=== PATIENT | female | born 1940 ===

== ENCOUNTER 2018-09-01 12:50 | Inpatient (IN) | payer MEDICARE ==
[2018-09-01] VITALS (11 sets, daily range): BP systolic 78–193; BP diastolic 40–59; BMI 30.8
[~2018-09-01] VITALS: Ht 160 cm; Wt 84.6 kg
[2018-09-01] MEDS ORDERED: XANAX0.5 MG (13:06)
[2018-09-01] MEDS ORDERED: NORVASC10 MG (13:06)
[2018-09-01] MEDS ORDERED: BUSPAR10 MG (13:07)
[2018-09-01] MEDS ORDERED: FOLIC ACID1 MG (13:07)
[2018-09-01] MEDS ORDERED: ZITHROMAX250 MG (13:07)
[2018-09-01] MEDS ORDERED: CATAPRES0.1 MG (13:07)
[2018-09-01] MEDS ORDERED: METHOTREXATE2.5 MG (13:08)
[2018-09-01] MEDS ORDERED: TRAZOD (13:08)
[2018-09-01] MEDS ORDERED: CRESTOR20 MG (13:08)
[2018-09-01] MEDS ORDERED: RELAFEN750 MG (13:08)
[2018-09-01] MEDS ORDERED: ROCEPHIN 1 GM/D51 G1 (13:08)
[2018-09-01] MEDS ORDERED: DEPAKENE250 MG (13:09)
[2018-09-01] MEDS ORDERED: GEODON60 MG (13:09)
--- NOTE | 2018-09-01 13:45 | NUR ---
TO CT SCAN.
--- NOTE | 2018-09-01 14:15 | NUR ---
RETURNED FROM CT SCAN.
--- NOTE | 2018-09-01 14:20 | NUR ---
PROPOFOL INCREASED TO 20 MCG. PATIENT IS BITING ON THE TUBE.
--- NOTE | 2018-09-01 14:56 | NUR ---
PROPOFOL DECREASED TO 10 MCG DUE TO BP DROP.
[2018-09-01 15:06] LABS: BASOPHILS 0 % (0-2); EOSINOPHILS 0 % (0-7); HEMATOCRIT 28.1 % (36.0-48.0); HEMOGLOBIN 8.9 g/dL (12-16); LYMPHOCYTES 1.8 % (15-50); MCH 29.9 pg (26.0-34.0); MCHC 31.7 g/dL (31.0-37.0); MCV 94.3 fL (80.0-100.0); MEAN PLATELET VOLUME 8.8 fL (7.4-10.4); MONOCYTES 2.8 % (2-11); NEUTROPHILS 94.4 % (40-80); PLATELET COUNT 295 10x3/uL (130-400); RBC 2.98 10x6/uL (4.00-5.40); RDW 17.4 % (11.5-14.5); WBC 3.9 10x3/uL (4.8-10.8)
[2018-09-01 15:21] LABS: ALBUMIN 2.2 g/dL (3.4-5.0); ALKALINE PHOSPHATASE 73 U/L (46-116); ALT (SGPT) 22 U/L (10-68); BILIRUBIN - TOTAL 0.56 mg/dL (0.2-1.3); CALC OSMOLALITY 296 mosm/kg (275-300); CALCIUM 10.3 mg/dL (8.5-10.1); CARBON DIOXIDE 27.2 mmol/L (21.0-32.0); CHLORIDE - SERUM 104 mmol/L (98-107); CREATININE - SERUM 0.7 mg/dL (0.6-1.3); GLUCOSE 172 mg/dL (74-106); POTASSIUM - SERUM 4.6 mmol/L (3.5-5.1); PROTEIN - SERUM 7.1 g/dL (6.4-8.2); SODIUM 143 mmol/L (136-145); UREA NITROGEN 34 mg/dL (7-18); eGFR NON AFRICAN AMERICAN 85 mL/min (90-120)
--- NOTE | 2018-09-01 15:27 | NUR ---
PROPOFOL INCREASED TO 20 MCG. PATIENT STARTED MOVING AND CHEWING ON HER TUBE. PATIENT IS NOW RESTING COMFORTABLY. FAMILY AT BEDSIDE. UPDATED ON PLAN OF CARE AND DELAYS IN CARE.
[2018-09-01 15:34] LABS: CKMB 3.4 U/L (0.0-3.6); CREATINE KINASE 22 UL (21-215)
[2018-09-01 15:48] LABS: TROPONIN-I 0.232 ng/mL (0.000-0.060)
--- NOTE | 2018-09-01 16:23 | NUR ---
NOREPINEPRINE INCREASED TO 2 MCG/MIN FOR BP OF 78/51 HR 71
--- NOTE | 2018-09-01 17:45 | NUR ---
REC'D FROM ER VIA CART. TO ICU BED BY T[employer]. OPENS EYES AND FOLLOWS SIMPLE COMMANDS. CONNECTED TO MONITOR AND VS OBTAINED. #7 OETT PATENT AND CONNECTED TO VENT. TV 450 FIO2 45 AC 16 PEEP +5. DIPRIVAN INFUSING TO L LEG IO. ROSS PATENT AND DRAINING CLEAR RABIA URINE. MULTIPLE STAGE 2 PRESSURE ON BUTTOCKS AND COOCYX. SEE ADMISSION ASSESSMENT.
--- NOTE | 2018-09-01 19:00 | NUR ---
Dr Lu notified of consult per daytime RN, Dr Desai paged to notify of consult.
--- NOTE | 2018-09-01 19:25 | NUR ---
Received patient sedated in bed on vent with family at bedside, assessment completed per flowsheet. Patient opens eyes to voice/weakly follows commands, eyes PERRLA @ 4mm with brisk response. ETT 7.0 @ 21cm secured. S1/S2 noted NSR on telemetry with HR 88, rythmic and regular. Vent settings A/C R-16 V-450 45% P-5 with O2 sat 93%, coarse crackles noted throughout. Abdomen is obese/soft with bowel sounds active x4, non-tender. Villanueva secured, concentrated yellow urine noted. LUE with chronic elbow dislocation, family refuses to allow reduction. All pulses palpable with cap refill < 3 sec, skin warm/dry. Large sacral decubitus ulcer noted, small purulent yellow drainage. Bilateral heel pressure ulcers, small pink-tinged drainage noted. Repositioned for comfort, heels bridged. No further needs at this time, see flowsheet for details. All VSS and will continue to monitor.
--- NOTE | 2018-09-01 19:35 | NUR ---
Dr Breen at bedside assessing patient, new orders received. Family updated on patient status, all questions answered by physician.
--- NOTE | 2018-09-01 20:10 | NUR ---
Anesthesiology Technologist notified of new orders, antibiotics to be pulled and given when available.
[2018-09-01 20:42] LABS: CKMB 2.1 U/L (0.0-3.6); CREATINE KINASE 20 UL (21-215); TROPONIN-I 0.194 ng/mL (0.000-0.060)
[2018-09-01 20:50] LABS: % SATURATION 6 % (15-55); FERRITIN 944 ng/mL (3-244); IRON 13 ug/dl (35-150); PRO BNP 2450 pg/mL (0-450); TOTAL IRON BIND CAPACITY 197 ug/dl (260-445); UNSAT IRON BIND CAPACITY 184 ug/dl (150-375)
--- NOTE | 2018-09-01 22:08 | NUR ---
nurses supervisor notified of medications to be pulled, to be given when available.
--- NOTE | 2018-09-01 23:15 | NUR ---
Reassessment completed per flowsheet, no s/s of distress at this time. ETT 7.0 @ 21cm secured, OGT secured. S1/S2 noted NSR on telemetry, rythmic and regular. Vent settings unchanged, crackles noted throughout. LUE chronic dislocation, all pulses palpable with cap refill < 3 sec. BLE skin dry/cracking, pressure ulcers noted bilateral heep with pink-tinged drainage. Buttock/Coccyx pressure ulcer with purulent yellow drainage, moderate exudate cleaned. Repositioned for comfort, no further needs. See flowsheet for details, all VSS and will continue to monitor.
[2018-09-02] VITALS (33 sets, daily range): BP systolic 85–187; BP diastolic 39–82; BMI 30.2
--- NOTE | 2018-09-02 01:10 | NUR ---
Patient sedated in bed with eyes closed, patient opens eyes to voice and weakly moves extremities. Oral care/repositioning for comfort, no further needs at this time and will continue to monitor.
--- NOTE | 2018-09-02 03:06 | NUR ---
Reassessment completed per flowsheet, no changes from previous assessment. Patient sedated in bed with eyes closed, opens eyes to voice/moves extremities weakly. S1/S2 noted NSR on telemetry, rythmic and regular. Vent settings unchanged from previous with O2 sat 98%, crackles noted throughout. All pulses palpable wtih cap refill < 3 sec, skin warm/dry. Oral care/suctioning provided, repositioned for comfort. No further needs at this time, see flowsheet for details. All VSS and will continue to monitor.
[2018-09-02 03:13] LABS: CKMB 0.9 U/L (0.0-3.6); CREATINE KINASE 13 UL (21-215); TROPONIN-I 0.141 ng/mL (0.000-0.060)
--- NOTE | 2018-09-02 05:00 | NUR ---
Patient sedated in bed on vent with eyes closed, no s/s of distress at this time. Patient opens eyes spontaneously, weakly follows commands with RUE. Oral care/suctioning provided, repositioned for comfort. No further needs and will continue to monitor.
[2018-09-02 05:55] LABS: BASOPHILS 0 % (0-2); EOSINOPHILS 0 % (0-7); HEMATOCRIT 22.8 % (36.0-48.0); IMMATURE GRANULOCYTES 0.6 % (0-5); MCHC 32.5 g/dL (31.0-37.0); MEAN PLATELET VOLUME 8.8 fL (7.4-10.4); MONOCYTES 4.6 % (2-11); NEUTROPHILS 89.8 % (40-80); PLATELET COUNT 268 10x3/uL (130-400); RBC 2.47 10x6/uL (4.00-5.40); RDW 17.7 % (11.5-14.5)
[2018-09-02 06:01] LABS: HEMOGLOBIN 7.4 g/dL (12-16); MCV 92.3 fL (80.0-100.0)
[2018-09-02 06:06] LABS: CALCIUM 9.5 mg/dL (8.5-10.1); CARBON DIOXIDE 22.5 mmol/L (21.0-32.0); CHLORIDE - SERUM 111 mmol/L (98-107); CREATININE - SERUM 0.7 mg/dL (0.6-1.3); SODIUM 147 mmol/L (136-145); UREA NITROGEN 40 mg/dL (7-18); eGFR NON AFRICAN AMERICAN 85 mL/min (90-120)
[2018-09-02 06:07] LABS: CALC OSMOLALITY 302 mosm/kg (275-300); GLUCOSE 121 mg/dL (74-106); POTASSIUM - SERUM 3.6 mmol/L (3.5-5.1)
--- NOTE | 2018-09-02 06:15 | NUR ---
Paged Dr Breen regarding H&H results, awaiting return call.
--- NOTE | 2018-09-02 07:20 | NUR ---
SHIFT REPORT RECEIVED. PT INTUBATED AND SEDATED. OPENS EYES TO VOICE. HAS IO ON LEFT NUNES. PROPOFOL INFUSING AT 22MCG/KG/MIN AND NS AT 100ML/HR. 7.0 ETT 22 AT THE LIP RIGHT SIDE. WRIST RESTRAINTS IN PLACE. ROSS IN PLACE WITH CONCENTRATE YELLOW URINE NOTED. A/C, TV 500, R-12, FIO2 45%, PEEP 5. OGT TUBE IN PLACE TO LIWS. SHIFT ASSESSMENT COMPLETED. WILL CONTINUE TO MONITOR.
--- NOTE | 2018-09-02 07:48 | NUR ---
PROPOFOL INCREASED TO 25MCG/KG/MIN AT THIS TIME.
[2018-09-02 07:49] LABS: CKMB 0.8 U/L (0.0-3.6); CREATINE KINASE 22 UL (21-215); TROPONIN-I 0.136 ng/mL (0.000-0.060)
[2018-09-02 08:48] LABS: INR 1.14 (0.85-1.17); PROTIME 14.1 SECONDS (11.6-15.0)
--- NOTE | 2018-09-02 09:40 | NUR ---
SPOKE WITH DAUGHTER CAIO IRVIN VIA PHONE. SPOKE WITH HER REGARDING CVL PLACEMENT. SHE IS POA AND GAVE CONSENT TO HAVE CVL PLACED. SHE WILL BE BY TO SEE PT LATER TODAY.
--- NOTE | 2018-09-02 11:25 | NUR ---
GI OFFICE NOTIFIED OF CONSULT. DR. FLORES IS UNIT TECHNICIAN TODAY.
--- NOTE | 2018-09-02 11:39 | NUR ---
SPOKE WITH CAIO IRVIN ON THE PHONE. CONSENT ACQUIRED FOR CVL PLACEMENT, THORACENTESIS, AND BLOOD TRANSFUSSION. CONSENT VIRIFIED BY ALBARO ESPINOZA AND YIN ESPINOZA.
--- NOTE | 2018-09-02 12:03 | NUR ---
SPOKE WITH DR. COLBERT. HE WANTS TO WAIT ON BLOOD TRANSFUSSION TILL AFTER LABS HAVE BEEN COLLECTED. PT ONLY HAS IO. WAITING ON CVL PLACEMENT. DR. PARISI HAS BEEN NOTIFIED. WILL CONTINUE TO MONITOR.
--- NOTE | 2018-09-02 14:10 | NUR ---
CVL PLACED AT THIS TIME BY DR. PARISI. PROPOFOL INCREASED TO 40MCG/KG/MIN FOR PROCEDURE.
--- NOTE | 2018-09-02 15:21 | NUR ---
PT SLIGHTLY BRADYCARDIC. HR DROPS TO 59 BUT RETURNS BACK TO 60S. PROPOFOL DECREASED FROM 40MCG/KG/MIN TO 35MCG/KG/MIN. IO DC'D AT THIS TIME. FLUIDS INFUSING THROUGH L-SUB CVL THAT WAS PLACED TO DAY. PLACEMENT WAS VERIFIED WITH CX-RAY
--- NOTE | 2018-09-02 16:10 | NUR ---
PT TRANSPORTED TO AND FROM CT. NO COMPLICATIONS NOTED. CURRENTLY BACK IN ROOM. PROPOFOL AT 35MCG/KG/MIN AND NS AT 100ML/HR. WILL CONTINUE TO MONITOR.
--- NOTE | 2018-09-02 17:22 | NUR ---
CARDIOLOGY CONSULT CALLED IN AT THIS TIME. OFFICE WILL NOTIFY DR. WOODS. HR DROPPED TO 55 AND REMAINS IN THE 50S AT THIS TIME. PROPOFOL DECREASED TO 30MCG/KG/MIN. WILL CONTINUE TO MONITOR.
--- NOTE | 2018-09-02 17:50 | NUR ---
1ST UNIT OF PRBC'S INITIATED AT THIS TIME. PROPOFOL INFUSING AT 30MCG/KG/MIN. HR IN 60S. WILL CONTINUE TO MONITOR.
--- NOTE | 2018-09-02 19:00 | NUR ---
Shift assessment complete. Pt is able to open eyes and follow some commands. PERRLA, 3 mm, brisk reaction to light ETT/OGT secured. OGT LIS, dark green/brown bile noted in collection chamber. ETT size 7.0, 21 cm midline. Vent settings: A/C rate of 12, FiO2 40%, tidal volume 500, peep 5.0, O2 sat 97%. Suctioned via inline, clear secretions noted. S1S2 audible, HR 54, sinus alee. Crackles heard bilat throughout all lobes. Obese and soft ABD, BS active x4. L elbow dislocation, informed that the doctor's are aware and that it is a chronic problem. L subclavian CVL infusing PRBCs, NS @ 50, and Propofol @ 35 mcg/kg/min. Villanueva cath intact draining concentrated yellow urine. Generalized swelling noted in upper and lower ext. Radial and pedal pulses palp. Several stage II pressure ulcers noted on the buttocks/coccyx area, yellow drainage, partial linen change provided. B/L stage II pressure ulcers noted on heels, heels bridged, no drainage noted. Wedges placed under left side. No SCDs at this time, awaiting B/L venous doppler of lower ext, scheduled for tomorrow. Restraints removed and skin assessed, WNL, restraints placed back on. No further needs at this time. Will cont to monitor closely.
--- NOTE | 2018-09-02 20:15 | NUR ---
PRBC infusion complete. Flushing line now, no S/S of xfusion reaction noted.
--- NOTE | 2018-09-02 20:30 | NUR ---
Second unit PRBC infusing.
--- NOTE | 2018-09-02 22:17 | NUR ---
PAGED DR. FLORES'S OFFICE DUE TO INCREASED BP.
--- NOTE | 2018-09-02 22:30 | NUR ---
SLIME SMITH APN, ANSWERED PAGE. NEW ORDERS RECIEVED.
--- NOTE | 2018-09-02 23:00 | NUR ---
Reassessment complete. No changes in pt condition. Partial linen change provided, moderate yellow drainage noted from pressure ulcers on buttocks/coccyx area. Villanueva care provided. Elevated pt's ext on pillows, bridged heels. VSS. Will cont to monitor closely.
[2018-09-03] VITALS (25 sets, daily range): BP systolic 120–174; BP diastolic 49–81; Ht 160 cm; Wt 84.6 kg
--- NOTE | 2018-09-03 01:00 | NUR ---
Repositioned for comfort. VSS. Oral care provided via RT. RT at bedside changing circuit. Pt tolerated well. Will cont close monitoring in ICU.
--- NOTE | 2018-09-03 03:00 | NUR ---
Reassessment complete. Decreased Propofol due to decreased HR. BP WNL. Pt opens eyes to speech and is able to follow some commands. Bridged heels. Oral care provided. Repositioned for comfort. Urine is clear yellow. Will cont with POC.
--- NOTE | 2018-09-03 05:00 | NUR ---
Repositioned for comfort. VSS. Oral care provided. No further needs. Will cont with POC.
[2018-09-03 06:14] LABS: BASOPHILS 0.4 % (0-2); EOSINOPHILS 0.4 % (0-7); IMMATURE GRANULOCYTES 0.9 % (0-5); LYMPHOCYTES 5.8 % (15-50); MCHC 32.8 g/dL (31.0-37.0); MEAN PLATELET VOLUME 8.6 fL (7.4-10.4); MONOCYTES 7.2 % (2-11); NEUTROPHILS 85.3 % (40-80); PLATELET COUNT 233 10x3/uL (130-400); RDW 18.5 % (11.5-14.5)
[2018-09-03 06:28] LABS: HEMATOCRIT 29.9 % (36.0-48.0); HEMOGLOBIN 9.8 g/dL (12-16); MCV 88.5 fL (80.0-100.0); RBC 3.38 10x6/uL (4.00-5.40); WBC 7.8 10x3/uL (4.8-10.8)
[2018-09-03 06:39] LABS: CALC OSMOLALITY 296 mosm/kg (275-300); CALCIUM 9.3 mg/dL (8.5-10.1); CARBON DIOXIDE 23.2 mmol/L (21.0-32.0); CHLORIDE - SERUM 109 mmol/L (98-107); CREATININE - SERUM 0.6 mg/dL (0.6-1.3); GLUCOSE 103 mg/dL (74-106); MAGNESIUM - SERUM 1.7 mg/dL (1.8-2.4); POTASSIUM - SERUM 3.1 mmol/L (3.5-5.1); SODIUM 146 mmol/L (136-145); eGFR NON AFRICAN AMERICAN > 90 mL/min (90-120)
[2018-09-03 06:50] LABS: UREA NITROGEN 28 mg/dL (7-18)
--- NOTE | 2018-09-03 07:30 | NUR ---
INTUBATED AND SEDATED. A/C R-12, TV-500, FIO2 40%, PEEP 5. HAS L-SUB CVL WITH NS AT 100ML/HR AND PROPOFOL AT 45MCG/KG/MIN. OPENS EYES TO VOICE. OGT TO LIWS. GREEN STOMACH CONTANT NOTED. PT REMAINS NPO. WRIST RESTRAINTS ON BOTH ARMS. ROSS IN PLACE WITH YELLOW, CONCENTRATED URINE. SHIFT ASSESSMENT COMPLETED. WILL CONTINUE TO MONITOR.
[2018-09-03 10:20] LABS: FOLATE (FOLIC ACID) - SERUM 19.3 ng/mL (>3.0)
--- NOTE | 2018-09-03 10:29 | NUR ---
PHONE CALL RECEIVED FROM CAIO IRVIN, PT'S DAUGHTER. SHE STATED THAT THEY WANTED TO MAKE THE PATIENT DNR. DR. FLORES SPEAKING TO PT AT THIS TIME.
--- NOTE | 2018-09-03 12:14 | NUR ---
PHONE CALL RECEIVED FROM CAIO IRVIN. WANTED TO SEE IF MORE TESTS HAD BEEN DONE ON THE PT. NO NEW TEST SINCE LAST TIME I SPOKE WITH HER.
--- NOTE | 2018-09-03 13:13 | NUR ---
PROPOFOL AND NS TURNED OFF PER DR. JORGENSEN'S ORDERS. BLOOD DRAWN FOR VANC TROUGH AT THIS TIME. PT OPENING EYES. WILL CONTINUE TO MONITOR.
--- NOTE | 2018-09-03 13:34 | NUR ---
PROPOFOL TURNED BACK ON PER DR. JORGENSEN'S ORDERS. CURRENTLY INFUSING AT 45MCG/KG/MIN. PT'S BREATHING RATE REACHED 70 WHILE PROPOFOL OFF. BREATHING RATE AT THIS TIME IS 32. WILL CONTINUE TO MONITOR.
--- NOTE | 2018-09-03 15:00 | NUR ---
RE-ASSESSMENT COMPLETED. HR BRADYCADIC IN 50S. NO ACUTE CHANGES. KCL INFUSING PER ELECTROLYTE PROTOCOL. REPOSITIONED FOR COMFORT. ORAL TEMP 99.6. WILL CONTINUE TO MONITOR.
--- NOTE | 2018-09-03 17:38 | NUR ---
BED BATH GIVEN AT THIS TIME. MEPILEX DRESSING APPLIED TO COCCYX/BUTTOCKS. COMPLETE LINEN CHANGE PROVIDED. ORAL CARE PROVIDED. PULLED UP IN BED AND REPOSITIONED FOR COMFORT. LEGS ELEVATED ON PILLOWS. NO FURTHER NEEDS. WILL CONTINUE TO MONITOR.
--- NOTE | 2018-09-03 19:00 | NUR ---
Shift assessment complete. Pt is sedated on vent, she is able to follow commands and opens her eyes to speech, PERRLA, 3 mm, brisk reaction to light ETT/OGT secured. ETT size 7.0, 21 cm midline. Vent settings: A/C rate of 16, tidal volume 450, FiO2 40%, peep 5.0. Suctioned via inline and oral, clear secretions noted. S1S2 audible, HR 63 NSR. RR increased at 29 breaths/min. Instructed pt to slow breathing down and educated her on the equipment that is assisting her at this time, increased sedation medication per titration orders. Clear lung sounds heard throughout all lobes. ABD is soft, hypoactive BS x4. L elbow dislocation noted, elevated on pillow. Lt subclavian CVL infusing Propofol @ 55 mcg/kg/min (34.7 ml/hr). OGT has dark yellow/green/brown bile, LIWS. Villanueva cath intact draining clear yellow urine. Radial and pedal pusles palp. Dressings on buttock/coccyx intact. Heels bridged, pressure ulcers noted bilat. Oral care provided. All needs met, tight parameters set. Will cont close observation in CVICU.
--- NOTE | 2018-09-03 21:30 | NUR ---
Potassium recheck 3.4. Initiating electrolyte protocol.
--- NOTE | 2018-09-03 23:00 | NUR ---
Reassessment complete. 2nd bag of 20meq KCl infusing @ 50 ml/hr. Repositioned for comfort. Oral care provided. VSS. Pt able to follow all commands. Will cont with POC.
[2018-09-04] VITALS (24 sets, daily range): BP systolic 113–164; BP diastolic 40–78
--- NOTE | 2018-09-04 01:00 | NUR ---
Repositioned for comfort. Oral care provided. No changes in pt condition.
--- NOTE | 2018-09-04 03:00 | NUR ---
Reassessment complete. No changes in pt condition, repositioned for comfort. Oral care provided. See flowsheet for further details. Pt sedated on vent, unable to titrate Propofol down due to increased respirations. Will cont to monitor closely.
--- NOTE | 2018-09-04 05:00 | NUR ---
Partial linen change provided. Pt tolerated well. All dressings intact. Repositioned for comfort. Heels bridged. Oral care provided. Will cont with POC.
--- NOTE | 2018-09-04 06:54 | NUR ---
CVL dressing change via in shop service technician. Decreased sedation by 1/2, RT at bedside.
--- NOTE | 2018-09-04 07:30 | NUR ---
SHIFT REPORT RECEIVED. INTUBATED AND SEDATED. ETT 7.0 21 AT THE LIP MIDLINE. SIMV R-8, TV450, PS 12, FIO2 40%, PEEP 5. OPENS EYES. HAS L-SUB CVL WITH PROPOFOL INFUSING AT 45MCG/KG/MIN. ROSS IN PLACE WITH CONCENTRATED YELLOW URINE NOTED. WRIST RESTRAINTS ON BOTH ARMS. GENERALIZED SWELLING NOTED. SHIFT ASSESMENT COMPLETED. BED ALARM ON. SIDE RAILS UP X 3. RESTING COMFORTABLY. WILL CONTINUE TO MONITOR.
[2018-09-04 08:13] LABS: BASOPHILS 0.3 % (0-2); EOSINOPHILS 1.9 % (0-7); HEMATOCRIT 30.9 % (36.0-48.0); HEMOGLOBIN 10.1 g/dL (12-16); IMMATURE GRANULOCYTES 0.9 % (0-5); LYMPHOCYTES 5.2 % (15-50); MCH 29.4 pg (26.0-34.0); MCHC 32.7 g/dL (31.0-37.0); MCV 89.8 fL (80.0-100.0); MEAN PLATELET VOLUME 8.7 fL (7.4-10.4); MONOCYTES 11.2 % (2-11); NEUTROPHILS 80.5 % (40-80); PLATELET COUNT 196 10x3/uL (130-400); RBC 3.44 10x6/uL (4.00-5.40); RDW 18.7 % (11.5-14.5); WBC 6.8 10x3/uL (4.8-10.8)
[2018-09-04 08:20] LABS: CALC OSMOLALITY 290 mosm/kg (275-300); CALCIUM 9.2 mg/dL (8.5-10.1); CHLORIDE - SERUM 111 mmol/L (98-107); CREATININE - SERUM 0.5 mg/dL (0.6-1.3); GLUCOSE 95 mg/dL (74-106); MAGNESIUM - SERUM 1.8 mg/dL (1.8-2.4); POTASSIUM - SERUM 3.6 mmol/L (3.5-5.1); SODIUM 145 mmol/L (136-145); eGFR NON AFRICAN AMERICAN > 90 mL/min (90-120)
[2018-09-04 08:22] LABS: PHOSPHOROUS 3.3 mg/dL (2.5-4.9); UREA NITROGEN 19 mg/dL (7-18)
--- NOTE | 2018-09-04 09:27 | NUR ---
REPOSITIONED FOR COMFORT. ORAL CARE PROVIDED. HR IN 60S. BP 121/49. NO FURTHER NEEDS. WILL CONTINUE TO MONITOR.
--- NOTE | 2018-09-04 09:33 | NUR ---
RECEIVED CALL FROM CAIO ALBARO, PT'S DAUGHTER. PASS CODE VERIFIED. BRIEF UPDATE GIVEN. INFORMED HER THAT PT IS STILL ON VENT SUPPORT. VSS. ATTEMPTING TO WEAN HER OF THE VENT. SHE WILL BE BY TO SEE PATIENT LATER TODAY.
--- NOTE | 2018-09-04 10:12 | NUR ---
PT BACK ON A/C, R -16, TV 450, FIO2 40% AND PEEP 5. RR 33-36. 5MG PROPOFOL BOLUS GIVEN AT THIS TIME. PROPOFOL INFUSING AT 45MCG/KG/MIN. WILL CONTINUE TO MONITOR.
--- NOTE | 2018-09-04 10:22 | NUR ---
CONTINUES TO BREATHE 30 BREATHS PER MIN. PROPOFOL INCREASED TO 50MCG/KG/MIN. WILL CONTINUE TO MONITOR.
--- NOTE | 2018-09-04 10:28 | NUR ---
REC: NPO >/=3 days. May want to consider alternate nutrition support Spoke with nursing RD following
--- NOTE | 2018-09-04 13:22 | NUR ---
PROPOFOL DECREASED TO 45MCG/KG/MIN. PT RESTING COMFORTABLY. GRANDAUGHTER AT BEDSIDE.
--- NOTE | 2018-09-04 14:32 | NUR ---
PT RESTING COMFORTABLY. PROPOFOL INFUSING AT 45MCG/KG/MIN. HR IN 50S SINUS BRAYDYCARDIC. ONE TIME DOSE 20MG OF LASIX GIVEN PER ORDERS. WILL CONTINUE TO MONITOR.
--- NOTE | 2018-09-04 15:04 | NUR ---
DIETARY CONSULT CALLED IN. SPOKE WITH JESUS ALBERTO. WOUND CARE CONSULT CALLED IN TO [facility]. SHE WILL BE BY TO SEE PT SOON SHE CAN.
--- NOTE | 2018-09-04 15:12 | NUR ---
Nutrition follow-up/consult: Received order to begin TF Pt intubated, sedated with propofol Labs reviewed Wt: 171# RDN will order Pulmocare @ 25 ml/hr with gradual increase to goal rate of 40 ml/hr and 25 ml H2O flush Q hour. RDN following.
--- NOTE | 2018-09-04 15:18 | MORECARE ---
CASE MANAGEMENT DISCHARGE SUMMARY PATIENT: GLORIA JI UNIT: [id number] ADM DATE: 09/01/18 AGE: 78 : 39 SEX: F ROOM/BED: [facility] AUTHOR: MARILUZ YAN PHYSICIAN: REFERRING PHYSICIAN: PAULA GARCES MD DATE OF SERVICE: 09/04/18 Discharge Plan Patient Name: GLORIA JI Facility: [facility]:[place] : 1940 Planned Disposition: Nursing Facility [facility] Cert Anticipated Discharge Date: Discharge Date: Expected LOS: Initial Reviewer: [email or web address] Initial Review Date: 09/01/2018 Generated: 09/04/18 4:18 pm DCPIA - Discharge Planning Initial Assessment Updated by [email or web address]: Gloria Gillis on 09/04/18 3:14 pm * Is the patient Alert and Oriented? No * Preadmission Environment [facility] Home [facility] * Facility Name [facility] [phone] * ADLs Partial Dependent * Partial ADLs (Assistance needed) Ambulation Bathing Dressing Eating Medication Management Toileting Transfers * List name and contact numbers for known caregivers / representatives who currently or will assist patient after discharge: MAKAYLA IRVIN - DAUGHTER- [phone] * Verbal permission to speak to the caregivers and representatives has been obtained from the patient. N/A * Additional services required to return to the preadmission environment? No * Can the patient safely return to the preadmission environment? Yes * Has this patient been hospitalized within the prior 30 days at any hospital? No Patient Name: GLORIA JI Page [id number] at 1518 All edits/amendments must be made on the electronic document DICTATION DATE: 09/04/181517 SPECIAL MAKEUP FX ARTIST INSTRUCTOR: BRENDAN 09/04/181517 RPT#: [id number] DC DATE: STATUS: ADM IN [facility] [address] [place] [address] END OF REPORT
--- NOTE | 2018-09-04 15:40 | NUR ---
WOUND CARE NURSE AT BESIDE. PT TURNED ON SIDE TO EVALUATE BUTTOCKS/COCCYX AREA. SMALL AMOUNT OF SOFT, FORMED STOOL NOTED AT THIS TIME. STOOL SAMPLE COLLECTED.
--- NOTE | 2018-09-04 15:42 | MORECARE ---
CASE MANAGEMENT DISCHARGE SUMMARY PATIENT: GLORIA JI UNIT: [id number] ADM DATE: 09/01/18 AGE: 78 : 39 SEX: F [facility] AUTHOR: YURIY,DOC PHYSICIAN: REFERRING PHYSICIAN: PAULA GARCES MD DATE OF SERVICE: 09/04/18 Discharge Plan Patient Name: GLORIA JI Facility: [facility]:[place] : 1940 Planned Disposition: Nursing Facility [facility] Cert Anticipated Discharge Date: Discharge Date: Expected LOS: Initial Reviewer: [email or web address] Initial Review Date: 09/01/2018 Generated: 09/04/18 4:42 pm Comments DCP- Discharge Planning Updated by [email or web address]: Gloria Gillis on 09/04/18 2:[address] Patient Name: GLORIA JI Admission Status: ER Accout number: [id number] Admission Date: 09-01-2018 : 1940 Admission Diagnosis:ACUTE RESPIRATORY FAILURE WITH HYPOXIA Attending: PAULA GARCES Current LOS: 3 Anticipated DC Date: Planned Disposition: Nursing Facility [facility] Cert Primary Insurance: MEDICARE A & B Discharge Planning Comments: CM spoke with [facility] [phone]. 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 They are planning on patient returning to their facility upon discharge. Patient is currently sedated on vent. CM hasn't been able to get in touch with inez Acharya [phone] for full discharge planning assessment. CM will continue to follow and assist as needed with discharge planning / needs. Boiler Tenders Supervisor: Gloria Gillis DCPIA - Discharge Planning Initial Assessment Updated by [email or web address]: Gloria Gillis on 09/04/18 3:14 pm * Is the patient Alert and Oriented? No * Pread[facility] Environment [facility] * Facility Name [facility] [place] [address] * ADLs Partial Dependent * Partial ADLs (Assistance needed) Ambulation Bathing Dressing Eating Medication Management Toileting Transfers * List name and contact numbers for known caregivers / representatives who currently or will assist patient after discharge: MAKAYLA ALBARO TRUJILLO [phone] * Verbal permission to speak to the caregivers and representatives has been obtained from the patient. N/A * Additional services required to return to the preadmission environment? No * Can the patient safely return to the preadmission environment? Yes * Has this patient been hospitalized within the prior 30 days at any hospital? No Last DP export: 09/04/18 2:18 p Patient Name: GLORIA JI Page [id number] at 1542 All edits/amendments must be made on the electronic document DICTATION DATE: 09/04/181541 RAFTER CUTTING MACHINE OPERATOR: BRENDAN 09/04/181541 RPT#: [id number] DC DATE: STATUS: ADM IN [facility] [address] [place] [address] END OF REPORT
--- NOTE | 2018-09-04 15:46 | NUR ---
Pt has numerous stage 2 pressure injuries on buttocks. She also has stage 2's on both heels. All areas are being cleansed, dried and covered wtih mepilex sacral and foam dressings. She is being turned/repositioned q 2 hours and is on an air overlay mattress. Recommend continuing with the same. Wound care will continue monitoring.
--- NOTE | 2018-09-04 17:00 | NUR ---
REPOSITIONED FOR COMFORT. PULMOCARE INITIATED AT 20CC/HR WITH 25CC H2O FLUSH Q HOURLY. HOB AT 30 DEGREES. PT RESTING COMFORTABLY. NO FURTHER NEEDS AT THIS TIME.
--- NOTE | 2018-09-04 19:00 | NUR ---
Shift assessment complete. Pt is sedated on vent. She is able to follow all commands, but she does seem very anxious at this time. PERRLA, 3 mm, brisk reaction to light. ETT/OGT secured. ETT size 7.0, 21 cm, midline. Vent settings: A/C rate of 16, tidal volume 450, FiO2 40%, peep 5.0, O2 sat 99%. S1S2 audible, HR 66 NSR. Tachypena, RR 28-30. Instructed pt to decrease RR and educated her on the equipment that is assisting her. Increased Propofol to 50 mcg/kg/min. Crackles heard bilat throughout all lobes, suctioned via inline and oral, clear secretions noted. ABD soft and round, BS active x4. OGT placement checked via auscultation. Pulmocare 1.5 infusing @ 20 mL/hr with a 25 cc flush Q1H, 0 residual. Lt subclavian CVL infusing Propofol and ABX, dressing CDI, bipatch present. Lt elbow dislocation noted. Repositioned for comfort, elevated on pillow. Radial pulses palp, restraints removed and skin assessed, WNL. Villanueva cath intact draining clear yellow urine. SCDs on, removed, skin assessed, WNL, placed back on and functioning. Stage II pressure ulcer noted on B/L heels, heels bridged. Dressings on buttocks/coccyx CDI. Oral care provided via RT. All needs met, VSS. Side rails up x3, bed in lowest position, tight parameters set on ICU monitors. Will cont close monitoring in CVICU.
--- NOTE | 2018-09-04 21:00 | NUR ---
Pt RR increased to 30-36 breaths/min. Increased Propofol to 55 mcg/kg/min. Oral care provided, repositioned for comfort. VSS. Will cont with POC.
--- NOTE | 2018-09-04 23:00 | NUR ---
Reassessment complete. 0 residual, increased TF by 10 mL per order instructions. TF is now infusing @ 30 mL/hr with 25 mL flush Q1H. Will recheck residual in 6 hours. Oral care provided, repositioned for comfort. Heels bridged. No further needs at this time. Will cont close observation in CVICU.
[2018-09-05] VITALS (25 sets, daily range): BP systolic 88–146; BP diastolic 44–68
--- NOTE | 2018-09-05 01:00 | NUR ---
RT at bedside, inline suction changed. Oral care provided. Repositioned for comfort. VSS. Will cont to monitor.
--- NOTE | 2018-09-05 03:00 | NUR ---
Reassessment complete. Complete bed bath and linen change provided. Placed AirOverlay mattress on, pt tolerated well. D/C'd wrist restraints. Pt does not move upper ext and she is calm at this time. R third toenail partially off and bleeding. Wrapped with kerlix. Heels bridged. VSS. No further changes at this time. Will cont to monitor closely.
--- NOTE | 2018-09-05 05:00 | NUR ---
Repositioned for comfort. VSS. Oral care provided. No changes in pt condition. Will cont with POC.
[2018-09-05 06:47] LABS: BASOPHILS 0.3 % (0-2); EOSINOPHILS 3.3 % (0-7); HEMATOCRIT 29.3 % (36.0-48.0); HEMOGLOBIN 9.5 g/dL (12-16); IMMATURE GRANULOCYTES 1.1 % (0-5); LYMPHOCYTES 5.5 % (15-50); MCH 29.1 pg (26.0-34.0); MCHC 32.4 g/dL (31.0-37.0); MCV 89.6 fL (80.0-100.0); MEAN PLATELET VOLUME 9.2 fL (7.4-10.4); MONOCYTES 15.5 % (2-11); NEUTROPHILS 74.3 % (40-80); PLATELET COUNT 167 10x3/uL (130-400); RBC 3.27 10x6/uL (4.00-5.40); RDW 18.1 % (11.5-14.5)
--- NOTE | 2018-09-05 07:00 | NUR ---
REPORT RECEVIED FROM THE OFF GOING RN. SEE ASSESSMENT IN THE PTS FLOW SHEET. PT SEDATED AND ON THE VENTILATOR. OGT WITH PULMOCARE NOTED. PLACEMENT CHECKED VIA A&A WITH NO RESIDUAL NOTED. LEFT SUBCLAVIAN DRESSING C/D/I. FC NOTED WITH CONECRATED YELLOW URINE. DRESSING NOTED TO BUTTOCKS C/D/I. DRESSING NOTED TO RIGHT FOOT C/D/I. HEELS FLOATED WITH A PILLOW. CALL LIGHT IN REACH. WILL CONT POC.
[2018-09-05 07:01] LABS: ALBUMIN 1.6 g/dL (3.4-5.0); ALKALINE PHOSPHATASE 94 U/L (46-116); ALT (SGPT) 48 U/L (10-68); BILIRUBIN - TOTAL 0.48 mg/dL (0.2-1.3); CALC OSMOLALITY 283 mosm/kg (275-300); CALCIUM 8.5 mg/dL (8.5-10.1); CHLORIDE - SERUM 107 mmol/L (98-107); CREATININE - SERUM 0.6 mg/dL (0.6-1.3); GLUCOSE 120 mg/dL (74-106); POTASSIUM - SERUM 3.3 mmol/L (3.5-5.1); PROTEIN - SERUM 5.5 g/dL (6.4-8.2); SODIUM 141 mmol/L (136-145); UREA NITROGEN 17 mg/dL (7-18); VANCOMYCIN - TROUGH 19.4 ug/mL (10.0-20.0); eGFR NON AFRICAN AMERICAN > 90 mL/min (90-120)
--- NOTE | 2018-09-05 08:30 | NUR ---
DR JORGENSEN AT THE PTS BEDSIDE. HE STATED TO TURN OFF THE PTS SEDATION. CLARIFIED THE IV FLUIDS. NEW ORDERS FOR FLUIDS AT [facility]
--- NOTE | 2018-09-05 08:45 | NUR ---
PT BREATHING 40-50 TIMES/MIN. HEART RATE INCREASED TO SINUS TACH [address] JORGENSEN IS IN THE UNIT AND WAS NOTIFIED. HE STATED TO GO AHEAD A SEDATE THE PT PER ORDERS AND TO CALL THE FAMILY TO HAVE A TALK WITH HIM AND THE PRIMARY PHYSICIAN.
--- NOTE | 2018-09-05 08:50 | NUR ---
K REPLACED PER ORDRES.
--- NOTE | 2018-09-05 09:39 | NUR ---
SPOKE WITH CAIO IRVIN, (PTS DAUGHTER) VIA TELEPHONE. I ASKED IF SHE WAS GONIG TO COME TO VISIT THE PT TODAY AND SHE STATED NO. I MENTIONED THAT DR JORGENSEN WOULD LIKE TO SIT DOWN WITH THE PRIMARY PHYSICIAN AND HER AND DISCUSS THE PTS CONDITION. SHE ASKED IF HER AND DR JORGENSEN COULD SPEAK VIA TELEPHONE. DR JORGENSEN PAGED. WAITING FOR DR JORGENSEN TO PAGE BACK.
--- NOTE | 2018-09-05 10:25 | NUR ---
DR AMOS AT THE PTS BEDSIDE. HE WAS MADE AWARE HER TOE NAIL ON HER RIGHT FOOT THAT IS ABOUT TO FALL OFF. HE STATED TO KEEP IT DRESSED. HE WILL CONSULT PEDIATRY IF THE PTS DAUGHTER PLANS TO KEEP CURRENT TREATMENT VS COMFORT CARE.
--- NOTE | 2018-09-05 10:31 | NUR ---
Nutrition Follow Up: Pt is intubated and sedated at this time. TF of Pulmocare @ 30 ml/hr, 25 ml/hr H2O flush. No residuals per chart. Diprivan @ 30 ml/hr providing 792 kcal/d. BM: 09/04/18 Wt loss noted I>O Noted per Wound Care - pt with multiple stage II ulcers Labs reviewed Meds noted including Diprivan, Lasix, Levo Will put order in to continue TF of Pulmocare @ 30 ml/hr with no increase for now (additional kcal from Diprivan). H2O flushes 20 ml/hr. RD following.
--- NOTE | 2018-09-05 10:47 | NUR ---
SPOKE WITH DR JORGENSEN THAT THE PTS DAUGHTER HAS NO PLANS FOR COMING TO SEE HER MOTHER TODAY DUE TO HER [address] THE DAUGHTER WAS CALLED AGAIN AND SHE SAID THAT SHE MIGHT COME TOMORROW TO HAVE A DISCUSSION WITH DR JORGENSEN AND DR AMOS.
--- NOTE | 2018-09-05 11:13 | NUR ---
[facility] CALLED AND FAXED (+) BLOOD CULTURES. STAPHYLOCCOCCUS, STAPH EPIDERMIDS AND STAPH LUGDUNENSIS NOTED. DR JORGENSEN PAGED AND NOTIFIED. PT ON VANC. NO NEW ORDERS AT THIS TIME.
--- NOTE | 2018-09-05 11:19 | NUR ---
CAIO IRVIN CALLED BACK AND STATED THAT SHE AND HER DAUGHTER WILL BE IN THE HOSPITAL TODAY AROUND 3PM. DR JORGENSEN AND DR FLORES NOTIFIED.
--- NOTE | 2018-09-05 11:30 | NUR ---
0ML OF RESIDUAL NOTED FROM OGT. PATENCY CHECKED VIA A&AQ. CHANGED FEEDING BAG AND FILLED THE BAG WITH PULMOCARE PER ORDERS. WILL CONT POC.
--- NOTE | 2018-09-05 13:30 | NUR ---
PT BECOMING LESS RESTLESS AND STILL. BLE PULSES DOPPLERED. RIGHT DORSALS PEDIS PULSE NOW AUDIBLE/PALPABLE.
--- NOTE | 2018-09-05 13:55 | NUR ---
PT BECOMING MORE RESTLESS AGAIN. EVEN WITH THE DAUGHTER AT THE BEDSIDE, THE PT IS STILL MANAGING TO GRAB AND PULL HER BIPAP MASK OFF. PT RESTRAINED. WILL MONITOR. CALL LIGHT IN REACH. WILL CONT POC.
--- NOTE | 2018-09-05 14:30 | NUR ---
PT BREATHING LESS LABORED AND SMALL AMOUNT OF CRACKLES NOTED IN BILATERAL LUNGS. RESP 22 92%. HEART RATE 99 NORMAL SINUS.
--- NOTE | 2018-09-05 14:48 | NUR ---
PT YAYO AND WARM TO THE TOUCH. 104 TEMP AXILLARY. PT PACKED WITH ICE AND FAN TURNED ON. DR AMOS NOTIFIED. TYLENOL 650 Q6H PRN TEMP. BLOOD CULTURES.
--- NOTE | 2018-09-05 15:45 | NUR ---
DR JORGENSEN AND DR AMOS AT THE PTS BEDSIDE. THE FAMILY AND BOTH DR'S WERE BROUGHT TO THE CONFRENCE ROOM. DR JORGENSEN AND DR AMOS SPOKE WITH THE FAMILY ABOUT THE PROGNOSIS OF THE PT AND IT BEING POOR IN THEIR OPINION. DR JORGENSEN STATED THAT THEY WOULD LIKE TO TEST THE PT FOR MENIGITIST AND IT WOULD REQUIRE A LUMBAR PUNCTURE. THE FAMILY IS OK WITH LP.
--- NOTE | 2018-09-05 16:09 | NUR ---
RADIOLOGY CALLED AND OK FOR LP TODAY. RT CALLED AND WILL LET ME KNOW WHENEVER THEY ARE READY. BLOOD CULTURES COLLECTED AND SENT DOWN TO THE LAB.
--- NOTE | 2018-09-05 17:17 | NUR ---
CLARIFIED WITH DR JORGENSEN WITH LP. CSF GRAM STAIN, CULTURE, PROTIEN, GLUCOSE, DIFFERENTIAL SBC COUNT, PCR, EBV, HSV, ENTROVIRUS.
--- NOTE | 2018-09-05 17:50 | NUR ---
THE PT WAS PLACED ON A PORTABLE VENT. THE PT, RT AND I LEFT TO IR. LP WAS PROFORMED WITH NO ISSUESS. THE PT DID HAVE TO BE MOVED FROM THE BED TO THE IR TABLE A HAD TO LAY ON HER STOMACH. ONCE THE PT WAS ROLLED BACK INTO THE BED, A BRUSIE TO HER LEFT HAND AND A SMALL SKIN TEAR WAS NOTED.
--- NOTE | 2018-09-05 18:17 | NUR ---
AXILLARY TEMP 99.9
[2018-09-05 18:20] LABS: RBC - CSF 0 cmm (0-0)
[2018-09-05 18:45] LABS: GLUCOSE - CSF 69 MG/DL (40-75)
--- NOTE | 2018-09-05 19:00 | NUR ---
Shift assessment complete. Pt is sedated on vent. ETT/OGT secured. ETT size 7.0, 21 cm midline, vent settings: A/C rate of 16, tidal volume 450, peep 5.0, FiO2 40%. S1S2 audible, HR 64 NSR showing on monitor. Crackles heard bilat throughout all lobes, suctioned via inline and oral, clear secretions noted. ABD flat, BS active x4. Villanueva cath intact draining concentrated yellow urine. Lt elbow dislocation noted, chronic issue. Lt subclavian CVL infusing Propofol @ 50 mcg/kg/min. SCDs on. Radial and pedal pulses palp. Lt arm bruising noted. B/L heel pressure ulcers, heels bridged. Lumbar dressing CDI, buttocks/coccyx dressings CDI. 0 residual, OGT placement checked with auscultation. Pulmocare infusing @ 30 mL/hr, increased to 40 mL/hr, goal rate. All needs met. Will cont close observation in CVICU.
[2018-09-05 19:16] LABS: APPEARANCE - CSF CLEAR
--- NOTE | 2018-09-05 21:00 | NUR ---
Family at bedside. Updated on pt condition. All questions answered. Oral care provided, repositioned for comfort. Will cont with POC.
--- NOTE | 2018-09-05 23:00 | NUR ---
Reassessment complete. Pt's temp slightly increasing. Pt's room feels warm. Work order placed to decrease temp in room. Fan on at this time. Repositioned for comfort, oral care provided. No further changes in pt condition. Will cont with POC.
[2018-09-06] VITALS (24 sets, daily range): BP systolic 96–123; BP diastolic 50–74
--- NOTE | 2018-09-06 01:00 | NUR ---
Gargles heard, small cuff leak. RT at beside instilling air in bulb. VSS. Oral care provided, repositioned for comfort. Will cont with POC.
--- NOTE | 2018-09-06 03:00 | NUR ---
Reassessment complete. Complete bed bath and linen change provided. Changed TF bag, dated, labeled. Pt tolerated well. Repositioned for comfort, oral care provided. Slight increase in temp, admin PRN tylenol via OGT. No further needs. Will cont with POC.
--- NOTE | 2018-09-06 05:00 | NUR ---
Oral care provided, repositioned for comfort. VSS. Will cont with POC.
[2018-09-06 06:34] LABS: ALBUMIN 1.5 g/dL (3.4-5.0); ALKALINE PHOSPHATASE 98 U/L (46-116); ALT (SGPT) 48 U/L (10-68); CALC OSMOLALITY 283 mosm/kg (275-300); CARBON DIOXIDE 21.1 mmol/L (21.0-32.0); CHLORIDE - SERUM 107 mmol/L (98-107); CREATININE - SERUM 0.7 mg/dL (0.6-1.3); GLUCOSE 119 mg/dL (74-106); POTASSIUM - SERUM 3.4 mmol/L (3.5-5.1); PROTEIN - SERUM 5.3 g/dL (6.4-8.2); SODIUM 140 mmol/L (136-145); UREA NITROGEN 25 mg/dL (7-18); eGFR NON AFRICAN AMERICAN 85 mL/min (90-120)
[2018-09-06 06:59] LABS: HEMATOCRIT 27.1 % (36.0-48.0); MCH 29.8 pg (26.0-34.0); MCHC 33.2 g/dL (31.0-37.0); MCV 89.7 fL (80.0-100.0); MEAN PLATELET VOLUME 9.2 fL (7.4-10.4); PLATELET COUNT 140 10x3/uL (130-400); RBC 3.02 10x6/uL (4.00-5.40); RDW 17.4 % (11.5-14.5); WBC 8.4 10x3/uL (4.8-10.8)
--- NOTE | 2018-09-06 07:00 | NUR ---
RECEIVED REPORT FROM ALEXIS CHENG. PATIENT RESTING IN BED SEDATED ON VENT. PROPOFOL INFUSING AT 50 MCG/MIN AND NS AT 10ML/HR BOTH VIA LEFT SUBCLAVIAN CENTRAL LINE. LUNG LANG COARSE. HR 59 SINUS LANDON. BP STABLE. O2 SAT 98%. VENT SETTINGS PRESCRIBED. SCD'S INTACT. RIGHT FOOT WRAPPED WITH CURLEX TO HOLD TONAIL FROM FALLING OFF. LEFT HEEL DECUBITUS--BOTH HEELS FLOATED ON PILLOWS. PULMICARE INFUSING AT 40 ML/HR VIA OGT. WILL CONINUE TO MONITOR.
[2018-09-06 08:17] LABS: EOSINOPHILS 4 % (0-7); LYMPHOCYTES 11 % (15-50); MONOCYTES 15 % (2-11); NEUTROPHILS 60 % (40-80)
[2018-09-06 08:18] LABS: PLATELET ESTIMATE NORMAL
--- NOTE | 2018-09-06 09:20 | NUR ---
SPOKE TO LAB ABOUT OBTAINING CSF PROTEIN LAB. STATED THEY WOULD ADD IT.
--- NOTE | 2018-09-06 09:59 | NUR ---
PATIENT PLACED ON VAPOTHERM BY RT PER DR. JORGENSEN ORDERS AT 40% O2 40L/MINUTE. O2 SAT MAINTAINING ABOVE 95%.
--- NOTE | 2018-09-06 10:04 | NUR ---
NUTRITION F/U CHART REVIEWED, PT SEDATED ON VENT. PULMOCARE AT GOAL RATE 400 CC/HR. DIPRIVAN AT 24 CC/HR. SPOKE WITH NURSING. DIPRIVAN RATE DECREASED TO 21 CC/HR. POSSIBLE DECREASE AGAIN APPROPRIATE. RD FOLLOWING
--- NOTE | 2018-09-06 10:21 | NUR ---
PULLED PATIENT UP IN BED AND TURNED TO RIGHT SIDE. LINENS ARE CLEAN AND DRY. TWO CLEAN AND INTACT DRESSINGS TO BUTTOCKS. HEELS FLOATED. VSS. WILL CONTINUE TO MONITOR
[2018-09-06 10:49] LABS: PROTEIN - CSF 27 MG/DL (12-60)
--- NOTE | 2018-09-06 12:00 | NUR ---
PATIENTS OGT HAS BECOME CLOGGED. NURSE PULLED AND DROPPED NEW 18 GUAGE OGT. VERIFIED PLACEMENT BY AUSCULTATION AND RESTARTED PULMICARE TUBE FEED.
--- NOTE | 2018-09-06 13:00 | NUR ---
PATIENT RESTING IN BED WITH STABLE VS. SEDATED ON VENTILATOR PER SETTINGS. PULMICARE INFUSING VIA OGT AT GOAL OF 40ML/HR. WILL CONTINUE TO MONITOR. VSS.
--- NOTE | 2018-09-06 15:00 | NUR ---
PATIENT RESTING IN BED CLEAN AND DRY SEDATED ON VENT WITH DIPRIVAN AT 40MCG/MIN. VSS. WILL CONTINUE TO MONITOR
--- NOTE | 2018-09-06 17:00 | NUR ---
PULLED UP IN BED AND TURNED TO LEFT SIDE. LINENS ARE CLEAN AND DRY. 2 CLEAN AND DRY MEPILEX DRESSINGS TO BUTTOCK. VSS. WILL CONTINUE TO MONITOR
[2018-09-07] VITALS (24 sets, daily range): BP systolic 94–143; BP diastolic 50–92
--- NOTE | 2018-09-07 01:00 | NUR ---
PT RESTING SEDATED ON VENT, VSS, POSITIONED FOR COMFORT, ORAL CARE PROVIDED.
[2018-09-07 05:11] LABS: BASOPHILS 0.4 % (0-2); EOSINOPHILS 4.6 % (0-7); HEMATOCRIT 27.8 % (36.0-48.0); IMMATURE GRANULOCYTES 3.6 % (0-5); LYMPHOCYTES 8.4 % (15-50); MCH 28.9 pg (26.0-34.0); MCHC 32.4 g/dL (31.0-37.0); MCV 89.4 fL (80.0-100.0); MEAN PLATELET VOLUME 10.4 fL (7.4-10.4); MONOCYTES 18.1 % (2-11); NEUTROPHILS 64.9 % (40-80); PLATELET COUNT 158 10x3/uL (130-400); RBC 3.11 10x6/uL (4.00-5.40); RDW 17.4 % (11.5-14.5)
[2018-09-07 05:36] LABS: ALBUMIN 1.4 g/dL (3.4-5.0); ANION GAP 16.5 mmol/L (8-16); BILIRUBIN - TOTAL 0.36 mg/dL (0.2-1.3); CALCIUM 8.1 mg/dL (8.5-10.1); CARBON DIOXIDE 20.2 mmol/L (21.0-32.0); CREATININE - SERUM 0.8 mg/dL (0.6-1.3); POTASSIUM - SERUM 3.7 mmol/L (3.5-5.1); PROTEIN - SERUM 5.5 g/dL (6.4-8.2); THYROID STIMULATING HORMONE 4.47 uIU/mL (0.36-3.74)
--- NOTE | 2018-09-07 05:42 | NUR ---
AM LABS REVIEWED, NOTHING TO TREAT PER ELECTROLYTE PROTOCOL.
--- NOTE | 2018-09-07 07:00 | NUR ---
OPENS EYES AND MAKES EYE CONTACT. TRIES TO SQUEEZE HAND ON REQUEST.SKIN WARM AND DRY ETT. SECURE TO VENT BILATERAL LUNG SOUNDS EQUAL. NO RESP DISTRESS. LEFT SUBCLAVIAN INFUSING WITH NS AT 10 ML HOUR, DIPRIVAN AT 25 MCG//KG/MIN. LEFT SUBCLAVIAN DRESSING DRY AND INTACT. ROSS CATH PATENT DRAINING CLEAR RABIA URINE. MONITOR SR. RIGHT FOOT WRAPPED IN KERLIX. DRESSING ON COCCYX DRY AND INTACT. LEFT HEEL HAS A SCAB ON IT NO REDNESS OR DRAINAGE NOTED. MULTIPLE BRUISES NOTED ON LEGS AND ARMS. HANDS CONTRACTED. DAUGHTER CALLED UPDATE GIVEN.
--- NOTE | 2018-09-07 09:00 | NUR ---
PATIENT SEDATION TURNED DOWN PER ORDERS DR. JORGENSEN. CPAP TRAIL ATTEMPTED PATIENT RESP RATE UP TO 72 WITHIN 2 MINUTES. RETURNED TO REGULAR RATE ON VENT.
--- NOTE | 2018-09-07 10:36 | NUR ---
PATIENT COUGHING AND GAGING AGAINST VENT SEATION INCREASED TO 15 MCG/KGMIN FROM 5 MCG/KG/MIN.
--- NOTE | 2018-09-07 10:45 | NUR ---
ATTEMPTED TO CPAP PATIENT THIS AM. PATIENTS RR INCREASED FROM 32 TO 51 WITH MARKED INCREASED WOB. RN NOTIFIED
--- NOTE | 2018-09-07 12:00 | NUR ---
OPENS EYES TO MINIMAL STIMULATION. RESTING COMFORTABLY ON 25 MCG/KG/MIN DIPRIVAN. NO DISTRESS. SUCTIONING LARGE AMOUNT OF SECRETIONS FROM ETT AND ORALLY. DAUGHTER CALLED BACK UPDATE GIVEN INFORMED OF FAILED CPAP TRAILS.
--- NOTE | 2018-09-07 14:00 | NUR ---
NO RESP DISTRESS. OPENS EYES QUICKLY TO VERBAL STIMULI. SUCTIONING LARGE AMOUNT ORALLY AND ETT CLEAR SECRETIONS.
--- NOTE | 2018-09-07 17:00 | NUR ---
REPOSITIONED CLEAR PADS PLACED UNDER PATIENT. SMALL SOFT VINCENZO COLORED STOOL PERICARE DONE. ROSS CARE DONE, PATIENT TOLERATED WELL. DRESSING ON COCCCYX AND BUTTOCK INTACT WITHOUT DRAINAGE.
--- NOTE | 2018-09-07 17:57 | NUR ---
NO DISTRESS. SUCTION FREQ TODAY ETT AND ORALLY CLEAR SECRETIONS.
--- NOTE | 2018-09-07 19:30 | NUR ---
RESUMED CARE OF PT, ASSESSMENT PER FLOWSHEET. PT EYES OPEN UPON ENTRANCE INTO ROOM, SEDATED ON PROPOFOL BUT FOLLOWS COMMANDS, OGT WITH PULMOCARE INFUSING AT 40 CC/HR, PLACEMENT VERIFIED WITH AUSC OF SMALL AIR BOLUS, NO RESIDUAL NOTED, ROSS CATH PATENT WITH YELLOW URINE IN TUBING, SKIN ASSESSMENT PER FLOWSHEET. ORAL CARE AND SUCTIONING PROVIDED, POSITIONED FOR COMFORT ELEVATED WITH FOAM WEDGES.
--- NOTE | 2018-09-07 21:30 | NUR ---
PT REPOSITIONED FOR COMFORT, ORAL CARE AND SUCTIONING PROVIDED, VSS, WILL MONITOR.
--- NOTE | 2018-09-07 23:13 | NUR ---
PT REPOSITIONED FOR COMFORT, ORAL CARE AND SUCTIONING PROVIDED, VSS.
[2018-09-08] VITALS (25 sets, daily range): BP systolic 96–168; BP diastolic 48–97
--- NOTE | 2018-09-08 01:00 | NUR ---
PATIENT REPOSITIONED FOR COMFORT, ORAL CARE AND SUCTIONING PROVIDED. CONT TO MONITOR.
--- NOTE | 2018-09-08 02:50 | NUR ---
REASSESSMENT PER FLOWSHEET, PT REMAINS SB ON CM, VSS.
--- NOTE | 2018-09-08 05:39 | NUR ---
PT POSITIONED FOR COMFORT SUPPORTED WITH WEDGES, ORAL CARE AND SUCTIONING PROVIDED, CONT POC.
--- NOTE | 2018-09-08 07:00 | NUR ---
OPENS EYES TO STIMULATION. ETT SECURE TO VENT BILATERAL LUNG SOUNDS EQUAL. LESS CONGESTED TODAY THAN YESTERDAY. LEFT SUBCLAVIAN CATH DRESSING DRY AND INTACT INFUSING WITH NS AT KVO, DIPRIVAN AT 30 MCG/GK/MIN. ROSS CATH PATENT DRAINING CLEAR YELLOW URINE. HEELS BRIDGED WITH PILLOW. RIGHT FOOT WRAPPED IN KERLIX DRY AND INTACT. HEAD OF BED ELEVATED 30 DEGREES. NO DISTRESS. RESTING COMFORTABLY. LESS ETT SECRETIONS AND ORAL SECRETIONS TODAY.
--- NOTE | 2018-09-08 09:00 | NUR ---
REPOSITIONED. MINIMAL ORAL AND ETT SECRETIONS. OPENS EYES TO STIMULATION. NO DISTRESS. RESTING COMFORTABLY. OG CHECKED FOR PLACEMENT WITH AIR BOLUS AUDIBLE IN ABD. NO RESIDUAL NOTED.PULMOCARE CONTINUES AT 40 ML HOUR
--- NOTE | 2018-09-08 10:48 | NUR ---
DR. JORGENSEN HERE UPDATE GIVEN
--- NOTE | 2018-09-08 12:30 | NUR ---
FAMILY HERE DAUGHTER AND GRANDAUGHTERS. TALKED WITH DR. GARCES. PATIENT SEDATION TURNED DOWN TO 10 MEQ/KG/MIN TO ALLOW PATIENT TO VISIT WITH FAMILY. SUCTION SMALL AMOUNT CLEAR SECRETIONS FROM ETT. MINIMAL ORAL SECRETIONS. FAMILY TRIED TO GET PATIENT TO WRITE NOTES, BUT UNABLE TO WRITE.
--- NOTE | 2018-09-08 13:15 | NUR ---
REPOSITIONED. NO DISTRESS. FAMILY AT BEDSIDE
--- NOTE | 2018-09-08 13:50 | NUR ---
EXTUBATED PER FAMILY AND PATIENT REQUEST. DR. JORGENSEN IN ROOM TALKED WITH FAMILY AND PATIENT. PATIENT NODES HEAD SHE WANTS THE TUBES OUT OF HER MOUTH. NODES HER HEAD YES SHE READY TO MEET LIANA TO HER FAMILY'S QUESTION. ETT AND OG TUBE REMOVED.
--- NOTE | 2018-09-08 14:07 | NUR ---
PATIENT TALKING TOLD FAMILY SHE LOVED THEM. RESP SHALLOW AND
--- NOTE | 2018-09-08 15:00 | NUR ---
HOSPICE CALLED NOTIFIED OF CONSULT.
--- NOTE | 2018-09-08 15:30 | NUR ---
RESP IN 30'S PULSE OX DROPPING INTO LOW 90'S UPPER 80'S. WET RESP. COUGHING SUCTION CLEAR SECRETION. RESP DISTRESS USING ABD MUSCLES TO BREATH. MORPHINE 2 MG IV GIVEN
--- NOTE | 2018-09-08 15:43 | NUR ---
FAMILY AT BEDSIDE. MORPHINE HELPED SOME. STILL SOME LABORED RESP. AWAITING HOSPICE
--- NOTE | 2018-09-08 15:56 | MORECARE ---
CASE MANAGEMENT DISCHARGE SUMMARY PATIENT: GLORIA JI UNIT: [id number] ADM DATE: 09/01/18 AGE: 78 : 39 SEX: F ROOM/BED: D.2303 AUTHOR: [email or web address] PHYSICIAN: REFERRING PHYSICIAN: PAULA GARCES MD DATE OF SERVICE: 09/08/18 Discharge Plan Patient Name: GLORIA JI Facility: [facility]:[place] : 1940 Planned Disposition: Nursing Facility [facility] Cert Anticipated Discharge Date: Discharge Date: Expected LOS: Initial Reviewer: [email or web address] Initial Review Date: 09/01/2018 Generated: 09/08/18 4:56 pm Comments DCP- Discharge Planning Updated by [email or web address]: Svetlana Fletcher on 09/08/18 2:[address] Patient Name: GLORIA JI Admission Status: ER Accout number: [id number] Admission Date: 09-01-2018 : 1940 Admission Diagnosis:ACUTE RESPIRATORY FAILURE WITH HYPOXIA Attending: PAULA GARCES Current LOS: 7 Anticipated DC Date: Planned Disposition: Nursing Facility [facility] Cert Primary Insurance: MEDICARE A & B Discharge Planning Comments: ALEXIS ZEPEDA CALLED ME AND STATED PATIENT WAS JUST EXTUBATED AND WANTS HOSPICE. CM SPOKE WITH FAMILY AND THEY REQUESTED [facility] IF INPATIENT HOSPICE IS APPROPRIATE. SUHAS CALLED AND IS ON WAY TO MEET WITH PATIENT AND FAMILY. FAMILY STATES SHE WAS LIVING AT [facility] AND HAD REQUESTED HOSPICE SEVERAL MONTHS AGO AND STATED SHE DIDN'T NEED IT. HER HEALTH HAS DRASTICALLY DECLINED AND IS REQUESTING HOSPICE. CM WILL FOLLOW AND ASSIST NEEDED WITH DC PLANNING/NEEDS. Joint Yarner: Svetlana Fletcher DCP- Discharge Planning Updated by [id number]: Gloria Gillis on 09/04/18 2:[address] Patient Name: GLORIA JI Admission Status: ER Accout number: [id number] Admission Date: 09-01-2018 : 1940 Admission Diagnosis:ACUTE RESPIRATORY FAILURE WITH HYPOXIA Attending: PAULA GARCES Current LOS: 3 Anticipated DC Date: Planned Disposition: Nursing Facility [facility] Cert Primary Insurance: MEDICARE A & B Discharge Planning Comments: CM spoke with [facility] [phone]. [facility] is a [facility] half-way resident in Medicaid bed. They are planning on patient returning to their facility upon discharge. Patient is currently sedated on vent. CM hasn't been able to get in touch with daughter Xiomara Acharya [phone] for full discharge planning assessment. CM will continue to follow and assist as needed with discharge planning / needs. Joint Yarner: Gloria Gillis DCPIA - Discharge Planning Initial Assessment Updated by [email or web address]: Gloria Gillis on 09/04/18 3:14 pm * Is the patient Alert and Oriented? No * Preadmission Environment Half-Way Long Term * Facility Name [facility] [phone] * ADLs Partial Dependent * Partial ADLs (Assistance needed) Ambulation Bathing Dressing Eating Medication Management Toileting Transfers * List name and contact numbers for known caregivers / representatives who currently or will assist patient after discharge: XIOMARA ACHARYA - DAUGHTER- [phone] * Verbal permission to speak to the caregivers and representatives has been obtained from the patient. N/A * Additional services required to return to the preadmission environment? No * Can the patient safely return to the preadmission environment? Yes * Has this patient been hospitalized within the prior 30 days at any hospital? No Last DP export: 09/04/18 2:42 p Patient Name: GLORIA JI Page [id number] at 1556 All edits/amendments must be made on the electronic document DICTATION DATE: 09/08/181555 DELIVERY ROUTE DRIVER: BRENDAN 09/08/181555 RPT#: [id number] DC DATE: STATUS: ADM IN [facility] [address] [place] [address] END OF REPORT
--- NOTE | 2018-09-08 16:30 | NUR ---
HOSPICE HERE TALKING WITH FAMILY. PATIENT GRUNDING WITH EACH BREATH. STILL USING ABD MUSCLES TO BREATH. AWAKE FAMILY AT BEDSIDE.
--- NOTE | 2018-09-08 18:00 | NUR ---
PATIENT CONTINUES TO GRUNT WITH EACH BREATH USING ABD MUSCLES TO BREATH. LABORED RESP NOTED. EMOTIONAL SUPPORT TO FAMILY.
--- NOTE | 2018-09-08 18:11 | NUR ---
NOT APPROVED FOR HOSPICE PER [facility]
--- NOTE | 2018-09-08 19:10 | NUR ---
Received patient laying in bed with eyes open, assessment completed per flowsheet. Patient opens eyes spontaneously, can follow commands. S1/S2 noted Sinus Tach on telemetry with HR 118, rythmic and regular. Breathing is shallow and labored/dyspneic with grunting/increased work of breathing observed on 2L via NC with O2 sat 82%, crackles noted bilateral upper and mid with diminished lower. Abdomen is round/soft with bowel sounds hypoactive x4, non-tender. Villanueva secured, scant clear yellow urine noted. All pulses palpable with cap refill < 3 sec, skin warm/dry. Impaired ROM all extremities with weakness/edema noted all. PRN morphine given for air hunger, repositioned for comfort. No further needs, see flowsheet for details. All VSS and will continue to monitor.
--- NOTE | 2018-09-08 19:40 | NUR ---
Spoke to [facility] via phone and updated on current status, area supervisor to return for patient re-evaluation this evening.
--- NOTE | 2018-09-08 21:00 | NUR ---
Patient resting in bed with eyes open, patient speech is clear/soft with slight disorientation to time/situation noted. Repositioned for comfort, denies pain or other needs at this time and will continue to monitor.
--- NOTE | 2018-09-08 23:00 | NUR ---
Reassessment completed per flowsheet, no changes from previous assessment. S1/S2 noted NSR on telemetry with HR 88, rythmic and regular. Breathing is shallow/labored and dyspneic on 2L via NC with O2 sat 95%, crackles noted bilateral upper and mid with diminished lower. All pulses palpable with cap refill < 3 sec, skin warm/dry. Denies pain or other needs at this time, see flowsheet for details. All VSS and will continue to monitor.
[2018-09-09] VITALS (20 sets, daily range): BP systolic 113–173; BP diastolic 62–95
--- NOTE | 2018-09-09 01:07 | NUR ---
Patient resting in bed with eyes closed, breathing is shallow/labored on 2L via NC with O2 sat 93%. S1/S2 noted NSR on telemetry, all pulses palpable with cap refill < 3 sec. Repositioned for comfort, no further needs at this time and will continue to monitor.
--- NOTE | 2018-09-09 02:55 | NUR ---
Reassessment completed per flowsheet, no changes from previous assessment. S1/S2 noted NSR on telemetry with HR 83, rythmic and regular. Breathing is shallow/dyspneic/labored on 2L via NC with O2 sat 97%, crackles noted bilateral upper and mid with diminished lower. All pulses palpable with cap refill < 3 sec, skin warm/dry. Repositioned for comfort, see flowsheet for details. All VSS and will continue to monitor.
--- NOTE | 2018-09-09 05:00 | NUR ---
AM labs collected without difficulty, patient resting in bed with eyes closed. Repositioned for comfort, denies pain or other needs and will continue to monitor.
--- NOTE | 2018-09-09 07:00 | NUR ---
SHIFT ASSESSMENT COMPLETED, PT CARE ASSUMED, MONITORS ON AND WORKING, VITALS STABLE. PT AWAKE AND ALERT, 02 SAT 97% ON 2L NC. CALL LIGHT WITHIN REACH, WILL CONTINUE TO OBSERVE.
--- NOTE | 2018-09-09 09:00 | NUR ---
PT TURNED AND RESPOSITIONED FOR COMFORT. NO SIGNS/SYMPTOMS OF PAIN OR DISCOMFORT NOTED AT THIS TIME. CALL LIGHT WITHIN REACH, WILL CONTINUE TO OBSERVE.
--- NOTE | 2018-09-09 09:25 | NUR ---
Nutrition follow-up: Pt extubated; TF off labs reviewed New CVA diagnoses Wt: 191# Noted hospice eval Will need diet advanced or nutrition support restarted within 24 hours if pt not admitted to hospice. RDN following.
--- NOTE | 2018-09-09 11:00 | NUR ---
PT TURNED AND REPOSITIONED FOR COMFORT, NO SIGNS/SYMPTOMS OF PAIN OR DISCOMFORT NOTED AT THIS TIME. SEE FLOW SHEET FOR FURTHER DETIALS. WILL CONTINUE TO OBSERVE.
--- NOTE | 2018-09-09 13:00 | NUR ---
PT TURNED AND REPOSITIONED, NO SIGNS/SYMPTOMS OF PAIN OR DISCOMFORT NOTED AT THIS TIME. WILL CONTINU TO OBSERVE.
--- NOTE | 2018-09-09 15:00 | NUR ---
NO CHANGES, MONITORS ON AND WORKING, VITALS STABLE. SEE FLOW SHEET FOR FURTHER DETAILS. WILL CONTINUE TO OBSERVE.
--- NOTE | 2018-09-09 17:00 | NUR ---
ORDERS REC'D TO TRANSFER PT TO FLOOR WHEN ROOM BECOMES AVIALABLE, NO SIGNS/SYMPTOMS OF PAIN OR DISCOMFORT NOTED AT THIS TIME. WILL CONTINUE TO OBSERVE.
--- NOTE | 2018-09-09 19:00 | NUR ---
Received patient resting in bed with eyes open, assessment completed per flowsheet. Patient disoriented to time/situation, follows instructions. S1/S2 noted NSR on telemetry with HR 85, rythmic and regular. Breathing is shallow/short of breath on 2L via NC with O2 sat 97%, crackles noted bilateral upper and mid with diminished lower. Abdomen is round/soft with bowel sounds hypoactive x4, non-tender. Villanueva secured, clear yellow urine noted. Weakness/generalized edema noted all, impaired ROM from chronic RA noted all extremities. All pulses palpable with cap refill < 3 sec, skin warm/dry. Patient denies pain or other needs at this time, see flowsheet for details. All VSS and will continue to monitor.
--- NOTE | 2018-09-09 19:56 | MORECARE ---
CASE MANAGEMENT DISCHARGE SUMMARY PATIENT: GLORIA JI UNIT: [id number] ADM DATE: 09/01/18 AGE: 78 : 39 SEX: F ROOM/BED: D.2303 AUTHOR: YURIY,DOC PHYSICIAN: REFERRING PHYSICIAN: PAULA GARCES MD DATE OF SERVICE: 09/09/18 Discharge Plan Patient Name: GLORIA JI Facility: [facility]:[place] : 1940 Planned Disposition: Nursing Facility [facility] Cert Anticipated Discharge Date: Discharge Date: Expected LOS: Initial Reviewer: [email or web address] Initial Review Date: 09/01/2018 Generated: 09/09/18 8:55 pm Comments DCP- Discharge Planning Updated by [email or web address]: Gloria Gillis on 09/09/18 6:[address] CM was notified that Hospice was ordered for patient but she wasn't considered inpatient GIP appropriate. Suhas from [facility] stated he was going to forward patients records to [facility]. CM called The [facility] [phone] and spoke with Yue. CM was checking to see which Hospice company they have contracts with. [place] does have a contract with [facility]. CM spoke with patient's daughter Xiomara Acharya [phone]. to make sure of patients discharge plan. Xiomara stated that she wanted patient to return to [facility] with hospice care. CM attempted to contact [facility] to see if they had received records. CM got answering service and will call back in am. CM will call [facility] in AM to see if they can accept patient back. CM will continue to follow and assist as needed with discharge planning / needs. DCP- Discharge Planning Updated by [email or web address]: Svetlana Fletcher on 09/08/18 2:[address] Patient Name: GLORIA JI Admission Status: ER Accout number: [id number] Admission Date: 09-01-2018 : 1940 Admission Diagnosis:ACUTE RESPIRATORY FAILURE WITH HYPOXIA Attending: PAULA GARCES Current LOS: 7 Anticipated DC Date: Planned Disposition: Nursing Facility [facility] Cert Primary Insurance: MEDICARE A & B Discharge Planning Comments: ALEXIS ZEPEDA CALLED ME AND STATED PATIENT WAS JUST EXTUBATED AND WANTS HOSPICE. CM SPOKE WITH FAMILY AND THEY REQUESTED [facility] IF INPATIENT HOSPICE IS APPROPRIATE. SUHAS CALLED AND IS ON WAY TO MEET WITH PATIENT AND FAMILY. FAMILY STATES SHE WAS LIVING AT [facility] AND HAD REQUESTED HOSPICE SEVERAL MONTHS AGO AND STATED SHE DIDN'T NEED IT. HER HEALTH HAS DRASTICALLY DECLINED AND IS REQUESTING HOSPICE. CM WILL FOLLOW AND ASSIST NEEDED WITH DC PLANNING/NEEDS. Ssis Architect: Svetlana Fletcher DCP- Discharge Planning Updated by [email or web address]: Gloria Gillis on 09/04/18 2:[address] Patient Name: GLORIA JI Admission Status: ER Accout number: [id number] Admission Date: 09-01-2018 : 1940 Admission Diagnosis:ACUTE RESPIRATORY FAILURE WITH HYPOXIA Attending: PAULA GARCES Current LOS: 3 Anticipated DC Date: Planned Disposition: Nursing Facility [facility] Primary Insurance: MEDICARE A & B Discharge Planning Comments: CM spoke with The [facility] DON [phone]. 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 They are planning on patient returning to their facility upon discharge. Patient is currently sedated on vent. CM hasn't been able to get in touch with daughter Xiomara Acharya [phone] for full discharge planning assessment. CM will continue to follow and assist as needed with discharge planning / needs. Ssis Architect: Gloria Gillis DCPIA - Discharge Planning Initial Assessment Updated by [email or web address]: Gloria Gillis on 09/04/18 3:14 pm * Is the patient Alert and Oriented? No * Preadmission Environment Residential Fci * Facility Name [facility] [place] [phone] * ADLs Partial Dependent * Partial ADLs (Assistance needed) Ambulation Bathing Dressing Eating Medication Management Toileting Transfers * List name and contact numbers for known caregivers / representatives who currently or will assist patient after discharge: XIOMARA ACHARYA - DAUGHTER- [phone] * Verbal permission to speak to the caregivers and representatives has been obtained from the patient. N/A * Additional services required to return to the preadmission environment? No * Can the patient safely return to the preadmission environment? Yes * Has this patient been hospitalized within the prior 30 days at any hospital? No Last DP export: 09/08/18 2:56 p Patient Name: GLORIA JI Page 69323 at 1956 All edits/amendments must be made on the electronic document DICTATION DATE: 09/09/181954 HOUSEHOLD APPLIANCES SERVICE TECHNICIAN: BRENDAN 09/09/181954 RPT#: [id number] DC DATE: STATUS: ADM IN [facility] [address] [place] [address] END OF REPORT
--- NOTE | 2018-09-09 21:00 | NUR ---
Patient resting in bed with eyes closed, no s/s of distress at this time. Oral care/suctioning provided, repositioned for comfort. Sips of water provided with no difficulties swallowing observed. All VSS and will continue to monitor.
[2018-09-09 21:07] LABS: ENTEROVIRUS RT-PCR Negative (Negative)
--- NOTE | 2018-09-09 23:00 | NUR ---
Patient sleeping in bed with eyes closed, no changes from previous assessment noted. S1/S2 noted NSR on telemetry with HR 86, rythmic and regular. Breathing is shallow/short of breath on 2L via NC with O2 sat 97%, crackles noted bilateral upper and mid with diminished lower. Impaired ROM all extremities, all pulses palpable with cap refill < 3 sec. Repositioned for comfort, denies pain or other needs at this time. All VSS and will continue to monitor.
[2018-09-10] VITALS (8 sets, daily range): BP systolic 124–176; BP diastolic 68–119
--- NOTE | 2018-09-10 01:00 | NUR ---
Patient resting in bed with eyes closed, breathing is shallow/short of breath on 2L via NC with O2 sat 95%. Sips of water given with no difficulty swallowing noted, repositioned for comfort. Will continue to monitor.
--- NOTE | 2018-09-10 03:00 | NUR ---
Patient resting in bed with eyes closed, no c/o pain or discomfort at this time. S1/S2 noted NSR on telemetry with HR 80, rythmic and regular. Breathing is shallow/short of breath on 2L via NC with O2 sat 97%, crackles noted bilateral upper and mid with diminished lower. All pulses palpable with cap refill < 3 sec, skin warm/dry. Repositioned for comfort, dawson care performed. No further needs, all VSS and will continue to monitor.
--- NOTE | 2018-09-10 05:00 | NUR ---
Patient resting in bed with eyes closed, AM labs collected without difficulty. Repositioned for comfort, no further needs and will continue to monitor.
--- NOTE | 2018-09-10 08:39 | NUR ---
0700 AWAKE ALERT ASSESSMENT COMPLETE
--- NOTE | 2018-09-10 10:45 | NUR ---
0900 TOTAL ASSIST WITH BREAKFAST APPETITE FAIR
--- NOTE | 2018-09-10 11:14 | MORECARE ---
CASE MANAGEMENT DISCHARGE SUMMARY PATIENT: GLORIA JI UNIT: [id number] ADM DATE: 09/01/18 AGE: 78 : 39 SEX: F ROOM/BED: D.2303 AUTHOR: YURIY,DOC PHYSICIAN: REFERRING PHYSICIAN: PAULA GARCES MD DATE OF SERVICE: 09/10/18 Discharge Plan Patient Name: GLORIA JI Facility: [facility]:[place] : 1940 Planned Disposition: Nursing Facility [facility] Cert Anticipated Discharge Date: Discharge Date: Expected LOS: Initial Reviewer: [email or web address] Initial Review Date: 09/01/2018 Generated: 09/10/18 12:13 pm Comments DCP- Discharge Planning Updated by [email or web address]: Gloria Gillis on 09/09/18 6:[address] CM was notified that Hospice was ordered for patient but she wasn't considered inpatient GIP appropriate. Suhas from [facility] stated he was going to forward patients records to [facility]. CM called The [facility] [phone] and spoke with Yue. CM was checking to see which Hospice company they have contracts with. [place] does have a contract with [facility]. CM spoke with patient's daughter Xiomara Acharya [phone]. to make sure of patients discharge plan. Xiomara stated that she wanted patient to return to [facility] with hospice care. CM attempted to contact [facility] to see if they had received records. CM got answering service and will call back in am. CM will call [facility] in AM to see if they can accept patient back. CM will continue to follow and assist as needed with discharge planning / needs. DCP- Discharge Planning Updated by [email or web address]: Svetlana Fletcher on 09/08/18 2:[address] Patient Name: GLORIA JI Admission Status: ER Accout number: [id number] Admission Date: 09-01-2018 : 1940 Admission Diagnosis:ACUTE RESPIRATORY FAILURE WITH HYPOXIA Attending: PAULA GARCES Current LOS: 7 Anticipated DC Date: Planned Disposition: Nursing Facility [facility] Cert Primary Insurance: MEDICARE A & B Discharge Planning Comments: ALEXIS ZEPEDA CALLED ME AND STATED PATIENT WAS JUST EXTUBATED AND WANTS HOSPICE. CM SPOKE WITH FAMILY AND THEY REQUESTED [facility] IF INPATIENT HOSPICE IS APPROPRIATE. SUHAS CALLED AND IS ON WAY TO MEET WITH PATIENT AND FAMILY. FAMILY STATES SHE WAS L[facility]ING [facility] AND HAD REQUESTED HOSPICE SEVERAL MONTHS AGO AND STATED SHE DIDN'T NEED IT. HER HEALTH HAS DRASTICALLY DECLINED AND IS REQUESTING HOSPICE. CM WILL FOLLOW AND ASSIST NEEDED WITH DC PLANNING/NEEDS. Screen Printer Helper: Svetlana Fletcher DCP- Discharge Planning Updated by [email or web address]: Gloria Gillis on 09/04/18 2:[address] Patient Name: GLORIA JI Admission Status: ER Accout number: [id number] Admission Date: 09-01-2018 : 1940 Admission Diagnosis:ACUTE RESPIRATORY FAILURE WITH HYPOXIA Attending: PAULA GARCES Current LOS: 3 Anticipated DC Date: Planned Disposition: Nursing Facility [facility] Primary Insurance: MEDICARE A & B Discharge Planning Comments: CM spoke with The [facility] DON [phone]. Patient is a correction senior care resident in Medicaid bed. They are planning on patient returning to their facility upon discharge. Patient is currently sedated on vent. CM hasn't been able to get in touch with daughter Xiomara Acharya [phone] for full discharge planning assessment. CM will continue to follow and assist as needed with discharge planning / needs. Screen Printer Helper: Gloria Gillis DCPIA - Discharge Planning Initial Assessment Updated by [email or web address]: Gloria Gillis on 09/04/18 3:14 pm * Is the patient Alert and Oriented? No * Preadmission Environment Fci Assisted * Facility Name [facility] [place] [phone] * ADLs Partial Dependent * Partial ADLs (Assistance needed) Ambulation Bathing Dressing Eating Medication Management Toileting Transfers * List name and contact numbers for known caregivers / representatives who currently or will assist patient after discharge: XIOMARA ACHARYA - DAUGHTER- [phone] * Verbal permission to speak to the caregivers and representatives has been obtained from the patient. N/A * Additional services required to return to the preadmission environment? No * Can the patient safely return to the preadmission environment? Yes * Has this patient been hospitalized within the prior 30 days at any hospital? No External Providers External Provider: OTHER-OTHER Next Contact Date: Service Request Date: Service Type: Resolution: Reviewer: Comments: Last DP export: 09/09/18 6:55 p Patient Name: GLORIA JI Page [id number] at 1114 All edits/amendments must be made on the electronic document DICTATION DATE: 09/10/181112 NETWORK SUPPORT ANALYST: BRENDAN 09/10/181112 RPT#: [id number] DC DATE: STATUS: ADM IN [facility] [address] [place] [address] END OF REPORT
[2018-09-10] MEDS ORDERED: SYNTHROID25 MCG PO (11:37)
--- NOTE | 2018-09-10 13:14 | NUR ---
1100 WATCHING TV WITHOUT C/O PAIN
--- NOTE | 2018-09-10 13:15 | NUR ---
1300 LUNCH COMPLETE CONSUMED 45% DISCONTINUED LEFT SUB CLAVIAN CENTRAL LINE PRESSURE DRESSING APPLIED TO SIGHT NO BLEED NOTED
--- NOTE | 2018-09-10 18:06 | NUR ---
1300 D/C TO THE [facility], REPORT CALLED NOTIFIED CAIO, EAGLE DAUGHTER
--- NOTE | 2018-09-10 18:11 | MORECARE ---
CASE MANAGEMENT DISCHARGE SUMMARY PATIENT: GLORIA JI UNIT: [id number] ADM DATE: 09/01/18 AGE: 78 : 39 SEX: F ROOM/BED: D.2303 AUTHOR: YURIY,DOC PHYSICIAN: REFERRING PHYSICIAN: PAULA GARCES MD DATE OF SERVICE: 09/10/18 Discharge Plan Patient Name: GLORIA IJ Facility: [facility]:[place] : 1940 Planned Disposition: Nursing Facility [facility] Cert Anticipated Discharge Date: Discharge Date: 09/10/2018 Expected LOS: Initial Reviewer: [email or web address] Initial Review Date: 09/01/2018 Generated: 09/10/18 7:10 pm Comments DCP- Discharge Planning Updated by [email or web address]: Gloria Gillis on 09/10/18 5:[address] CM spoke [facility] - Suhas Mtz this am to make sure that it was alright to transfer patient back to [facility]. CM spoke with [facility] she stated that she needed records faxed and nursing to call report. CM contacted [facility] service for transport [phone] per family request. CM faxed records to [facility]. Nursing to call report to [phone]. [facility] to admit upon arrival to [facility]. CM called and spoke Xiomara Acharya daughter that patient will be discharged today to go to [facility] with [facility]. CM explained IMM and she verbalized understanding served 09/10/18 @ 1030. CM will continue to follow and assist as needed with discharge planning / needs. DCP- Discharge Planning Updated by [email or web address]: Gloria Gillis on 09/09/18 6:[address] CM was notified that Hospice was ordered for patient but she wasn't considered inpatient GIP appropriate. Suhas from [facility] stated he was going to forward patients records to [facility]. MICHAEL called The [facility] [phone] and spoke with Yue. CM was checking to see which Hospice company they have contracts with. [facility] does have a contract with [facility]. CM spoke with patient's daughter Xiomara Acharya [phone]. to make sure of patients discharge plan. Xiomara stated that she wanted patient to return to The [facility] with hospice care. CM attempted to contact [facility] [place] to see if they had received records. CM got answering service and will call back in am. CM will call [facility] in AM to see if they can accept patient back. CM will continue to follow and assist as needed with discharge planning / needs. DCP- Discharge Planning Updated by [id number]: Svetlana Fletcher on 09/08/18 2:[address] Patient Name: GLORIA JI Admission Status: ER Accout number: [id number] Admission Date: 09-01-2018 : 1940 Admission Diagnosis:ACUTE RESPIRATORY FAILURE WITH HYPOXIA Attending: PAULA GARCES Current LOS: 7 Anticipated DC Date: Planned Disposition: Nursing Facility [facility] Cert Primary Insurance: MEDICARE A & B Discharge Planning Comments: ALEXIS ZEPEDA CALLED ME AND STATED PATIENT WAS JUST EXTUBATED AND WANTS HOSPICE. CM SPOKE WITH FAMILY AND THEY REQUESTED [facility] IF INPATIENT HOSPICE IS APPROPRIATE. SUHAS CALLED AND IS ON WAY TO MEET WITH PATIENT AND FAMILY. FAMILY STATES SHE WAS LIVING AT [facility] AND HAD REQUESTED HOSPICE SEVERAL MONTHS AGO AND STATED SHE DIDN'T NEED IT. HER HEALTH HAS DRASTICALLY DECLINED AND IS REQUESTING HOSPICE. CM WILL FOLLOW AND ASSIST NEEDED WITH DC PLANNING/NEEDS. Bark Press Operator: Svetlana Fletcher DCP- Discharge Planning Updated by [email or web address]: Gloria Gillis on 09/04/18 2:[address] Patient Name: GLORIA JI Admission Status: ER Accout number: [id number] Admission Date: 09-01-2018 : 1940 Admission Diagnosis:ACUTE RESPIRATORY FAILURE WITH HYPOXIA Attending: PAULA GARCES Current LOS: 3 Anticipated DC Date: Planned Disposition: Nursing Facility [facility] Cert Primary Insurance: MEDICARE A & B Discharge Planning Comments: CM spoke with [facility] [phone]. [facility] a [facility] in [facility] bed. They are planning on patient returning to their facility upon discharge. Patient is currently sedated on vent. CM hasn't been able to get in touch with daughter Xiomara Acharya [phone] for full discharge planning assessment. CM will continue to follow and assist as needed with discharge planning / needs. Bark Press Operator: Gloria Gillis DCPIA - Discharge Planning Initial Assessment Updated by [email or web address]: Gloria Gillis on 09/04/18 3:14 pm * Is the patient Alert and Oriented? No * Preadmission Environment Half-Way Alf * Facility Name [facility] [place] [phone] * ADLs Partial Dependent * Partial ADLs (Assistance needed) Ambulation Bathing Dressing Eating Medication Management Toileting Transfers * List name and contact numbers for known caregivers / representatives who currently or will assist patient after discharge: XIOMARA ACHARYA - DAUGHTER- [phone] * Verbal permission to speak to the caregivers and representatives has been obtained from the patient. N/A * Additional services required to return to the preadmission environment? No * Can the patient safely return to the preadmission environment? Yes * Has this patient been hospitalized within the prior 30 days at any hospital? No Last DP export: 09/10/18 10:14 a Patient Name: GLORIA JI Page 73044 at 1811 All edits/amendments must be made on the electronic document DICTATION DATE: 09/10/181809 A R SPECIALIST: BRENDAN 09/10/181809 RPT#: [id number] DC DATE:09/10/18 STATUS: DIS IN [facility] [address] [place] [address] END OF REPORT
[2018-09-11 17:11] LABS: EBV PCR CSF Negative (Negative)
--- NOTE | 2018-09-12 16:55 | MORECARE ---
CASE MANAGEMENT DISCHARGE SUMMARY PATIENT: GLORIA JI UNIT: [id number] ADM DATE: 09/01/18 AGE: 78 : 39 SEX: F ROOM/BED: D.2303 AUTHOR: YURIY,DOC PHYSICIAN: REFERRING PHYSICIAN: PAULA GARCES MD DATE OF SERVICE: 09/12/18 Discharge Plan Patient Name: GLORIA JI Facility: [facility]:[place] : 1940 Planned Disposition: Nursing Facility [facility] Cert Anticipated Discharge Date: Discharge Date: 09/10/2018 Expected LOS: Initial Reviewer: [email or web address] Initial Review Date: 09/01/2018 Generated: 09/12/18 5:55 pm Comments DCP- Discharge Planning Updated by [email or web address]: Gloria Gillis on 09/10/18 5:[address] CM spoke [facility] - Suhas Mtz this am to make sure that it was alright to transfer patient back to [facility]. [facility] she stated that she needed records faxed and nursing to call report. CM contacted [facility] service for transport [phone] per family request. CM faxed records to [facility]. Nursing to call report to [phone]. [facility] to admit upon arrival to [facility]. CM called and spoke Xiomara Acharya daughter that patient will be discharged today to go to [facility] with [facility]. CM explained IMM and she verbalized understanding served 09/10/18 @ 1030. CM will continue to follow and assist as needed with discharge planning / needs. DCP- Discharge Planning Updated by [email or web address]: Gloria Gillis on 09/09/18 6:[address] CM was notified that Hospice was ordered for patient but she wasn't considered inpatient GIP appropriate. Suhas from [facility] stated he was going to forward patients records to [facility]. MICHAEL called [facility] [phone] and spoke with Yue. CM was checking to see which Hospice company they have contracts with. [facility] does have a contract with [facility]. CM spoke with patient's daughter Xiomara Acharya [phone]. to make sure of patients discharge plan. Xiomara stated that she wanted patient to return to [facility] with hospice care. CM attempted to contact [facility] [place] to see if they had received records. CM got answering service and will call back in am. CM will call [facility] in AM to see if they can accept patient back. CM will continue to follow and assist as needed with discharge planning / needs. DCP- Discharge Planning Updated by [email or web address]: Svetlana Fletcher on 09/08/18 2:[address] Patient Name: GLORIA JI Admission Status: ER Accout number: [id number] Admission Date: 09-01-2018 : 1940 Admission Diagnosis:ACUTE RESPIRATORY FAILURE WITH HYPOXIA Attending: PAULA GARCES Current LOS: 7 Anticipated DC Date: Planned Disposition: Nursing Facility [facility] Cert Primary Insurance: MEDICARE A & B Discharge Planning Comments: ALEXIS ZEPEDA CALLED ME AND STATED PATIENT WAS JUST EXTUBATED AND WANTS HOSPICE. CM SPOKE WITH FAMILY AND THEY REQUESTED [facility] IF INPATIENT HOSPICE IS APPROPRIATE. SUHAS CALLED AND IS ON WAY TO MEET WITH PATIENT AND FAMILY. FAMILY STATES SHE WAS LIVING AT [facility] AND HAD REQUESTED HOSPICE SEVERAL MONTHS AGO AND STATED SHE DIDN'T NEED IT. HER HEALTH HAS DRASTICALLY DECLINED AND IS REQUESTING HOSPICE. CM WILL FOLLOW AND ASSIST NEEDED WITH DC PLANNING/NEEDS. Games Manager: Svetlana Fletcher DCP- Discharge Planning Updated by [id number]: Gloria Gillis on 09/04/18 2:[address] Patient Name: GLORIA JI Admission Status: ER Accout number: [id number] Admission Date: 09-01-2018 : 1940 Admission Diagnosis:ACUTE RESPIRATORY FAILURE WITH HYPOXIA Attending: PAULA GARCES Current LOS: 3 Anticipated DC Date: Planned Disposition: Nursing Facility [facility] Cert Primary Insurance: MEDICARE A & B Discharge Planning Comments: CM spoke with [facility] [phone]. Patient is a longterm long term resident in Medicaid bed. They are planning on patient returning to their facility upon discharge. Patient is currently sedated on vent. CM hasn't been able to get in touch with daughter Xiomara Acharya [phone] for full discharge planning assessment. CM will continue to follow and assist as needed with discharge planning / needs. Games Manager: Gloria Gillis DCPIA - Discharge Planning Initial Assessment Updated by [id number]: Gloria Gillis on 09/04/18 3:14 pm * Is the patient Alert and Oriented? No * Preadmission Environment Intermediate Halfway * Facility Name [facility] [place] [phone] * ADLs Partial Dependent * Partial ADLs (Assistance needed) Ambulation Bathing Dressing Eating Medication Management Toileting Transfers * List name and contact numbers for known caregivers / representatives who currently or will assist patient after discharge: XIOMARA ACHARYA - DAUGHTER- [phone] * Verbal permission to speak to the caregivers and representatives has been obtained from the patient. N/A * Additional services required to return to the preadmission environment? No * Can the patient safely return to the preadmission environment? Yes * Has this patient been hospitalized within the prior 30 days at any hospital? No Coverage Notice Reviewer: [email or web address] - Gloria Gillis Notice Issued Date-Time: 09/10/2018 10:30 Notice Type: IM Discharge Notice Notice Delivered To: Patient Relationship to Patient: Self Senior Enterprise Architect Name: Delivery Method: HAND - Hand Delivered Rosy Days: Prior Verbal Notification: Recipient Understood Notice: Yes Recipient Signature: Yes Med Rec Note Co-signed by Attending: Coverage Notice Comment: Last DP export: 09/10/18 5:10 p Patient Name: GLORIA JI Page 19477 at 1655 All edits/amendments must be made on the electronic document DICTATION DATE: 09/12/181654 PET ADOPTION COUNSELOR: BRENDAN 09/12/181654 RPT#: [id number] DC DATE:09/10/18 STATUS: DIS IN [facility] [address] [place] [address] END OF REPORT
== END 2018-09-10 15:15 | disposition home health service (06) | DRG 207 ==
LOC: D.ER 12:50 → D.CVICU 16:00 → D.EDHOLD 16:00 → D.ICU 16:36 → D.CVICU 16:52 → D.ICU 09-06 06:37 → D.MS 09-08 20:33 → D.ICU 09-08 20:43
PROVIDERS: Family Medicine; Family Medicine Adult Medicine; General Practice; Internal Medicine Pulmonary Disease; ADMIT Internal Medicine Nephrology
PROC: 5A1955Z Respiratory Ventilation, Greater than 96 Consecutive Hours (ICD-10-PCS; 2018-09-01)
PROC: 05H633Z Insertion of Infusion Device into Left Subclavian Vein, Percutaneous Approach (ICD-10-PCS; principal; 2018-09-02)
PROC: 009U3ZX Drainage of Spinal Canal, Percutaneous Approach, Diagnostic (ICD-10-PCS; 2018-09-05)
PROC: B01B1ZZ Fluoroscopy of Spinal Cord using Low Osmolar Contrast (ICD-10-PCS; 2018-09-05)
DX: J96.01 Acute respiratory failure with hypoxia (principal); R53.2 Functional quadriplegia; I63.9 Cerebral infarction, unspecified; J69.0 Pneumonitis due to inhalation of food and vomit; E87.0 Hyperosmolality and hypernatremia; I10 Essential (primary) hypertension; D64.9 Anemia, unspecified; F31.9 Bipolar disorder, unspecified; M06.9 Rheumatoid arthritis, unspecified; G40.909 Epilepsy, unspecified, not intractable, without status epilepticus; S53.105A Unspecified dislocation of left ulnohumeral joint, initial encounter; E78.5 Hyperlipidemia, unspecified; Z66 Do not resuscitate; F03.90 Unspecified dementia, unspecified severity, without behavioral disturbance, psychotic disturbance, mood disturbance, and anxiety; I50.9 Heart failure, unspecified; G57.63 Lesion of plantar nerve, bilateral lower limbs; R79.89 Other specified abnormal findings of blood chemistry; L89.152 Pressure ulcer of sacral region, stage 2